=== PATIENT | female | born 1955 | race Caucasian/White ===

== ENCOUNTER → 2018-12-19 | Outpatient (CLI) | payer OTHER ==
--- NOTE | 2018-12-19 16:13 | US ---
EXAMINATION TYPE: US venous doppler duplex LE LT DATE OF EXAM: 12/19/2018 4:00 PM COMPARISON: NONE CLINICAL HISTORY: M25.572 PAIN IN LT ANKLE AND FOOT,S93.402D. SIDE PERFORMED: Left TECHNIQUE: The lower extremity deep venous system is examined utilizing real time linear array sonog natasha with graded compression, doppler sonography and color-flow sonography. VESSELS IMAGED: External Iliac Vein (EIV) Common Femoral Vein Deep Femoral Vein Greater Saphenous Vein * Femoral Vein Popliteal Vein Small Saphenous Vein * Proximal Calf Veins PTV (* superficial vessels) Grayscale, color doppler, spectral doppler imaging performed of the deep veins of the left lower extr emity. There is normal flow, compressibility, vascular waveforms. Left Leg: Negative for DVT IMPRESSION: No sonographic evidence of deep venous thrombosis within the left lower extremity.
== END | disposition home or self-care (01) ==
LOC: RADUSWWP 15:23
PROVIDERS: ATTEND Orthopaedic Surgery
DX: M25.572 Pain in left ankle and joints of left foot (principal); S93.402D Sprain of unspecified ligament of left ankle, subsequent encounter; I80.9 Phlebitis and thrombophlebitis of unspecified site

== ENCOUNTER → 2021-08-24 | Outpatient (CLI) | payer BC ==
--- NOTE | 2021-08-24 21:17 | CTL ---
EXAMINATION TYPE: CT Low Dose Lung DATE OF EXAM ORDERED: 08/24/2021 HISTORY: Tobacco use. Lung cancer screening CT DLP: 62.[address] CTDI: 1.8 mGy Automated exposure control for dose reduction was used. SCREENING VISIT: Baseline COMPARISON: None available TECHNIQUE: Low dose computed tomography scan was performed through the chest at 1 mm thick sections a nd reconstructed images in multiple planes at 1 mm and [address] DIAGNOSTIC QUALITY: Satisfactory FINDINGS: LUNG NODULES: None. Right upper lobe pleural-based solid 5.[address] image 92 Right middle lobe pleural-based 4 mm solid nodule image #185. Left lower lobe base solid [address] image 227. Left upper lobe solid [address] image 89. Right lower lobe pleural-based 4 mm solid nodule on CT image 150. LUNGS: COPD: Severity: Mild paraseptal emphysema in the upper lobes. Fibrosis: Severity: Bilateral apical thick fibrotic changes. No fibrosis otherwise. Lymph nodes: No pathologically enlarged lymph nodes Other findings: Multiple bilateral pulmonary calcified granulomas measuring up to 3 mm. RIGHT PLEURAL SPACE: Effusion: None Calcification: None Thickening: None Pneumothorax: None LEFT PLEURAL SPACE: Effusion: None Calcification: None Thickening: None Pneumothorax: None HEART: Heart Size: Normal Coronary Calcification: Moderate Pericardial Effusion: None OTHER FINDINGS: Upper abdomen: Right adrenal adenoma measuring 2.9 cm. Bony thorax: Mild degenerative changes of the thoracic spine. Supraclavicular region: None Other: Ascending aortic aneurysm measuring up to 4.1 cm with scattered arterial atherosclerotic calci fications. IMPRESSION: Scattered bilateral pulmonary nodules measuring up to 5.7 mm as detailed above. Scattered pulmonary calcified granulomas are also seen. Ascending aortic aneurysm measuring up to 4.1 cm, for cardiothoracic surgery consultation and correlation with echocardiographic results. Other incidental findings as described above. CT LUNG RAD AND CT CHEST RECOMMENDATION: Benign appearance or behavior, category 2, continue annual s creening with LDCT in 12 months. S Modifier (other clinically significant findings): Ascending thoracic aortic aneurysm as described a rufino
== END | disposition home or self-care (01) ==
LOC: RADCTMAIN 16:57
PROVIDERS: ATTEND Family Medicine
DX: Z12.2 Encounter for screening for malignant neoplasm of respiratory organs (principal); R91.1 Solitary pulmonary nodule; Z87.891 Personal history of nicotine dependence
CPT/HCPCS: 71271

== ENCOUNTER → 2022-06-15 | Outpatient (CLI) | payer BC ==
[2022-06-15 22:38] LABS: Basophils # (A) 0.05 X 10*3/uL (0.00-0.10); Basophils % (A) 0.3 %; Eosinophils # (A) 0 X 10*3/uL (0.04-0.35); Eosinophils % (A) 0 %; HCT 38.4 % (37.2-46.3); HGB 12.3 g/dL (12.0-15.0); Immature Grans, Automated 0.7 %; Lymphocytes # (A) 1.46 X 10*3/uL (0.90-5.00); MCH 32.4 pg (27.0-32.0); MCV 101.1 fL (80.0-97.0); Mean Platelet Volume 11.4 fL (9.5-12.2); Monocytes # (A) 0.72 X 10*3/uL (0.20-1.00); Monocytes % (A) 4.4 %; NRBC Per 100 WBC 0 /100 WBCS (0.0-0.0); Neutrophils % (A) 85.6 %; Platelet Count 257 X 10*3/uL (140-440); RDW 13.6 % (11.5-14.5); WBC 16.24 X 10*3/uL (4.50-10.00)
[2022-06-15 23:05] LABS: Erythrocyte Sedimentation Rate 14 mm/Hr (0-30)
[2022-06-15 23:08] LABS: Rheumatoid Factor, Qnt <10 IU/mL (0-15); Uric Acid 5.7 mg/dL (2.9-7.7)
== END | disposition home or self-care (01) ==
LOC: LABWHC1 14:41
PROVIDERS: ATTEND Podiatrist Foot & Ankle Surgery
DX: M13.80 Other specified arthritis, unspecified site (principal); B99.9 Unspecified infectious disease
CPT/HCPCS: 36415; 84550; 85025; 85652; 86038; 86140; 86431

== ENCOUNTER → 2022-10-09 | Outpatient (CLI) | payer BC ==
--- NOTE | 2022-10-09 10:26 | CT ---
EXAMINATION TYPE: CT angio chest CT DLP: 396.4 mGycm, Automated exposure control for dose reduction was used. DATE OF EXAM: 10/09/2022 9:40 AM COMPARISON: CT low-dose lung cancer screening 08/24/2021. CLINICAL INDICATION:Female, 66 years old with history of I71.2 AAA; Thoracic ascending aortic aneurys m. TECHNIQUE/CONTRAST: CTA scan of the thorax is performed without and with IV Contrast, patient injected with 100ml mL of I sovue 300. MIP images are created and reviewed. FINDINGS: Lungs/Pleura: Biapical pleural-parenchymal scarring. No pleural effusion, pneumothorax, or focal cons olidation. Stable scattered pulmonary nodules example including a right upper lobe pleural-based 5 mm nodule (series 4, image 21). No new or enlarging pulmonary nodules. Minimal paraseptal emphysematous changes in the upper lobes. Scattered calcified granulomas. Airway: Large airways are patent. Heart: Heart is within normal limits for size. No pericardial effusion. Moderate coronary arterial ca lcifications. Vasculature: Mild atherosclerotic calcifications are present throughout the aorta and its branches. S table ascending thoracic aortic aneurysm measuring up to 4.1 cm. No intramural hematoma, penetrating atherosclerotic ulcer, or dissection identified. Mediastinum: No gross evidence of adenopathy. Musculoskeletal: No acute osseous abnormalities Soft Tissues: Unremarkable. Lower neck: No significant findings. Upper Abdomen: Stable 2.7 cm right adrenal adenoma. IMPRESSION: 1. Stable ascending thoracic aortic aneurysm measuring up to 4.1 cm. 2. Stable bilateral pulmonary nodules measuring up to 5 mm. No new or enlarging pulmonary nodules.
== END | disposition home or self-care (01) ==
LOC: RADCTMAIN 08:35
PROVIDERS: ATTEND Internal Medicine Interventional Cardiology
DX: I71.21 Aneurysm of the ascending aorta, without rupture (principal); R91.8 Other nonspecific abnormal finding of lung field
CPT/HCPCS: 71275; Q9967

== ENCOUNTER → 2023-10-15 | Outpatient (CLI) | payer BC ==
--- NOTE | 2023-10-15 19:54 | CTL ---
EXAMINATION TYPE: CT Low Dose Lung DATE OF EXAM ORDERED: 10/15/2023 HISTORY: Lung cancer screening CT DLP: [address] CTDI: 2.4 mGy Automated exposure control for dose reduction was used. COMPARISON: 08/24/2021 TECHNIQUE: Low dose computed tomography scan was performed through the chest at 1 mm thick sections a nd reconstructed images in multiple planes at 1 mm and [address] DIAGNOSTIC QUALITY: Satisfactory FINDINGS: There is mild pleural-parenchymal scarring in the apices. There are mild upper lobe emphysematous nelia nges. There is no suspicious lung mass or nodule. There are stable pleural-based nodules in the right lung and 2 stable 2 3 mm nodules in the left lung. The lungs are clear and there is no abnormal consolidation or interstitial density. There is no mediastinal, hilar or axillary adenopathy. There are stable 4 to 4.1 cm aneurysmal dilatation of the ascending thoracic aorta. There is no pleural effusion, pleural thickening or pneumothorax. No focal osseous lesions are seen. Limited scans the upper abdomen reveals no gross adenopathy. IMPRESSION: 1. BI-RADS Category 2 benign. Continue routine screening at yearly intervals. 2. No acute cardiopulmonary disease. 3. Mild emphysematous changes. 4. Stable 4 to 4.1 cm aneurysm of the ascending thoracic aorta.
== END | disposition home or self-care (01) ==
LOC: RADCTMAIN 17:49
PROVIDERS: ATTEND Family Medicine
DX: Z12.2 Encounter for screening for malignant neoplasm of respiratory organs (principal); I71.21 Aneurysm of the ascending aorta, without rupture; J43.9 Emphysema, unspecified; F17.210 Nicotine dependence, cigarettes, uncomplicated
CPT/HCPCS: 71271

== ENCOUNTER → 2024-11-03 | Outpatient (CLI) | payer BC ==
--- NOTE | 2024-11-03 18:59 | CTL ---
EXAMINATION TYPE: CT Low Dose Lung DATE OF EXAM: 11/03/2024 4:13 PM COMPARISON: 10/15/2023 CLINICAL INDICATION: Female, 68 years old with history of Z12.2 ENCNTR SCREEN FO F17.210 NICOTINE DEP ENDENCE; personal tobacco use, history of tobacco use. TECHNIQUE: Multiple axial non-contrast scans were obtained from approximately the lung apices through the upper abdomen. Coronal and sagittal reformatted images were obtained. Low dose technique was uti lized. MIP were created on a separate workstation and submitted for review. CT DLP: 70.8 mGycm, Automated exposure control for dose reduction was used. CT Contrast: Contrast used: None Oral contrast used: None FINDINGS: Lack of intravenous contrast and low dose technique limits the evaluation of the vascular and soft ti ssue structures. LUNGS: No evidence of pulmonary fibrosis. No evidence of focal consolidation, pneumothorax or pleural effusion. Centrilobular emphysema changes. Nodules: RUL: 6 mm series 3 5 image 20, stable RML: 3 mm series 3 image 23 RLL: None. DEE: None. LLL: None. AIRWAY: Patent and unremarkable. HEART: Size within normal limits. Mild coronary artery calcifications present. MEDIASTINUM: No gross evidence of adenopathy. VASCULATURE: No aortic aneurysm. Ascending thoracic aorta ectasia up to 42 mm. MUSCULOSKELETAL: Moderate disc degeneration changes are present throughout the thoracolumbar spine. SOFT TISSUES/LYMPH NODES: Unremarkable. LOWER NECK: No significant findings. UPPER ABDOMEN: Right adrenal nodule measuring 25 mm compatible lipid rich adrenal adenoma. No follow- up recommended. IMPRESSION: 1. No clinically significant pulmonary nodules. Stable nodules. 2. Mild emphysema. 3. Moderate degeneration changes throughout the spine. 4. Stable ascending thoracic aorta ectasia up to [address] LUNG RAD AND CT CHEST RECOMMENDATION: Lung-Rad 2 Benign Appearance or Behavior: Continue annual sc reening with LDCT in 12 months. S Modifier (other clinically significant findings): None Recommend smoking cessation (if current smoker), or continuation of smoking cessation (if prior smoke r). Annual screening for lung cancer with low-dose computed tomography is recommended in adults ages 55 to 77 years who have a 30 pack-year smoking history and currently smoke or have quit within the pa st 15 years. Screening should be discontinued once a person has not smoked for 15 years or develops a health problem that substantially limits life expectancy or the ability or willingness to have curat jana lung surgery. Lung rads 2021 [email or web address] [email or web address], , 11/03/2024 6:56 PM
== END | disposition home or self-care (01) ==
LOC: RADCTMAIN 15:09
PROVIDERS: ATTEND Family Medicine
DX: Z12.2 Encounter for screening for malignant neoplasm of respiratory organs (principal); F17.210 Nicotine dependence, cigarettes, uncomplicated; J43.2 Centrilobular emphysema; I77.810 Thoracic aortic ectasia; M47.815 Spondylosis without myelopathy or radiculopathy, thoracolumbar region
CPT/HCPCS: 71271